=== PATIENT | female | born 1930 | race Caucasian/White ===

== ENCOUNTER 2021-11-10 13:14 | Emergency (ER) | payer MEDICARE, MEDICAID ==
[~2021-11-10] VITALS: Ht 160 cm; Wt 100.0 kg
[2021-11-10 15:48] VITALS: BP 105/72
== END 2021-11-10 17:30 | disposition home or self-care (01) ==
LOC: EMS 13:14
DX: M79.605 Pain in left leg (principal); B35.1 Tinea unguium
CPT/HCPCS: 93925; 93971; 99284; Z7502